=== PATIENT | male | born 1995 | race Caucasian/White ===

== ENCOUNTER → 2017-11-15 09:50 | Outpatient (REF) | payer SELFPAY | LOC: OM 09:50 | PROVIDERS: PCP Pediatrics; Visit Provider Nurse Practitioner Family | DX: Z02.83 Encounter for blood-alcohol and blood-drug test (principal) ==

== ENCOUNTER 2018-03-20 10:43 | Emergency (ER) | payer SELFPAY ==
[2018-03-20 10:52] VITALS: BP 139/79; PULSE 69; RESP 18; TEMP 38.9; O2SAT 98
--- NOTE | 2018-03-20 11:06 | ED.GENADUL_ITS ---
Discharge Plan Disposition Patient Disposition: HOME Condition: Stable Discharge Details Chief Complaint: DentalOral Clinical Impression: Dental infection Primary Care Provider: Jin Gonzalez ED Provider: Hillary Guerrier Home Meds and New Rx's Prescriptions: New penicillin V potassium 500 mg tablet 500 mg PO QID 7 Days Qty: 27 RF: 0 Discharge Instructions Instructions: Dental Abscess (ED) Additional Instructions: Please return immediately to the emergency department if you develop any new or worsening symptoms or if you become otherwise concerned. It is extremely important that you make an appointment to be seen by your dentist within the next 48 hours in follow-up for this visit. You may take 600 mg of ibuprofen every 6 hours as needed for pain. Medical Decision Making Emir gamez is a 22-year-old man with no reported major medical problems presenting to the emergency department with dental pain and swelling since yesterday. Exam patient is very well and nontoxic appearing. He is febrile. There is tender swelling over the left mandible without overlying skin changes. There is no intraoral abscess amenable to I&D. Exam/history not consistent with sepsis, meningitis, retropharyngeal abscess, peritonsillar abscess, Ryland angina, other abscess or deep space infection, impending airway compromise, osteomyelitis. Concern for dental infection. Plan for ibuprofen, penicillin. I had a lengthy discussion with Patient regarding return to emergency department precautions and importance of outpatient follow-up with dentist. Pt is amenable to the plan. Disposition decision was made weighing the risks and benefits of hospitalization versus outpatient treatment, the risk for further decompensation, and the patie nt's wishes. Medical Records Medical records reviewed: Yes I reviewed the patient's medical records. HPI General Mode of arrival: ambulatory . Date/Time Provider Initiated Documentation: 03/20/18 11:05 . Limitations to Documentation: no limitations . Information obtained by: patient, RN notes reviewed and old records reviewed . HPI Narrative: Emir Gamez is a 22-year-old man with history of asthma presenting to the emergency department with facial pain/swelling. Patient reports this ago he broke 3 of his left lower molars. He reports that yesterday he noticed pain and swelling in the area of the broken teeth, and also just below his left jaw. He presents the emergency department with a fever in triage, but does not think he had a fever yesterday. He denies any other pain, shortness of breath, cough, nausea/vomiting/diarrhea, numbness/tingling/weakness. Has been eating and drinking as usual. No recent illness. Slept on his back in his bed with one pillow last night as usual for him. Related Data Home Medications Medication Instructions Recorded Confirmed penicillin V potassium 500 mg PO QID 7 Days #27 tab 03/20/18 Previous Rx's Medication Instructions Recorded penicillin V potassium 500 mg PO QID 7 Days #27 tab 03/20/18 Allergies Allergy/AdvReac Type Severity Reaction Status Date / Time No Known Allergies Allergy Unverified 03/20/18 10:55 General Stated Complaint: DentalOral BLANCA: 4 Review of Systems Review of Systems Constitutional: denies fevers Eyes: denies eye pain ENT: denies sore throat, reports dental pain, left lower jaw pain Cardiovascular: denies chest pain Respiratory: denies SOB, cough GI: denies abdominal pain, vomiting, diarrhea : denies flank pain MSK: denies back pain, neck pain, arthralgias, myalgias Skin: denies rash Neuro: denies headaches, lightheadedness, weakness [facility] Medical History No active medical problems (Acute) No active medical problems (Acute) Social History Smoking/Tobacco Use Status: Current every day Exam Narrative Exam Narrative: Constitutional: well and [id number], pleasant, convers ing normally HENT: head atraumatic, normocephalic normal inspection, mucous membranes moist, normal posterior pharynx, uvula midline, no tongue elevation. poor dentition throughout with lower left 3 rear molars broken, mild edema over the body of the left mandible, TTP, no crepitus, no overlying skin changes. No trismus or tenderness of the TMJ. Eyes: conjunctiva normal, sclera normal, pupils 3mm b/l Neck: no stridor, normal painless ROM, trachea midline, no edema Chest: normal inspection Resp: normal work of breathing, LCTAB. Patient lies supine on bed with no difficulty breathing. Cardio: normal rate, normal rhythm, no murmur appreciated Skin: warm, dry, normal color, no rash Neuro: alert, not altered, grossly non-focal, normal tone Psych: normal mood, normal affect, normal behavior Course Vital Signs Temperature 38.9 C H 03/20/18 10:52 Pulse 69 03/20/18 10:52 Respiratory Rate 18 03/20/18 10:52 Blood Pressure 139/79 03/20/18 10:52 Pulse Oximetry 98 03/20/18 10:52 Temperature 38.9 C H 03/20/18 10:52 Temperature Source Skin 03/20/18 10:52 Pulse 69 03/20/18 10:52 Respiratory Rate 18 03/20/18 10:52 Respiratory Effort 03/20/18 10:56 Blood Pressure 139/79 03/20/18 10:52 Blood Pressure Position Sitting 03/20/18 10:52 Pulse Oximetry 98 03/20/18 10:52 Pain Level 8 03/20/18 10:56 Comment 03/20/18 10:52
[2018-03-20] MEDS: Penicillin V POTASSIUM 500 MG TAB PO (11:20)
[2018-03-20] MEDS: Ibuprofen 600 MG TAB PO (11:20)
[2018-03-20 11:22] VITALS: BP 139/79; PULSE 69; RESP 18; TEMP 38.9; O2SAT 98
== END 2018-03-20 11:27 | disposition home or self-care (01) ==
PROVIDERS: Emergency Provider Student in an Organized Health Care Education/Training Program; PCP Pediatrics
DX: K04.7 Periapical abscess without sinus (principal); F17.210 Nicotine dependence, cigarettes, uncomplicated
CPT/HCPCS: 99283

== ENCOUNTER 2018-05-11 00:27 | Emergency (ER) | payer SELFPAY ==
[2018-05-11 00:29] VITALS: BP 127/66; PULSE 88; RESP 18; TEMP 36.6; O2SAT 99
--- NOTE | 2018-05-11 00:32 | W.ED.GENAD ---
Discharge Plan Disposition Patient Disposition: HOME Condition: Stable Discharge Details Chief Complaint: Fever Clinical Impression: Flu-like symptoms, Acute streptococcal pharyngitis Primary Care Provider: None,None ED Provider: Chuy Kearney Home Meds and New Rx's Prescriptions: New amoxicillin 500 mg tablet 500 mg PO TID Qty: 30 RF: 0 oseltamivir [Tamiflu] 75 mg capsule 75 mg PO BID 5 Days Qty: 10 RF: 0 ondansetron 4 mg tablet,disintegrating 4 mg PO TID PRN (Reason: nausea and vomiting) 5 Days Qty: 30 RF: 0 Discharge Instructions Additional Instructions: your symptoms are most likely due to influenza. You also tested positive for strep throat Drink small frequent amounts of liquids to stay hydrated if symptoms continue next week see your primary care provider you can take 1000mg tylenol and 600mg ibuprofen every 6 hours as needed for muscle aches and fevers if you feel you are significantly more ill, have persistent vomit or difficulty breathing return to the emergency department Stand Alone Forms: Work Release Medical Decision Making 22 yo male who denies chronic medical problems, smokes, denies drug use, who comes in with chief complaint of fever, nausea, diarrhea, muscle aches, sore throat and dry cough all starting yesterday. He had a fever just prior to arrival per pt but took tylenol. He denies rashes, severe headache, dyspnea, neck stiffness, or recent travel. He has clear lungs, is speaking in full sentences wihout hypoxia and so doubt pna and do not feel xray or abx for pna indicated at this time. 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 his constellation of symptoms seems most consistent with influenza and someone at work had this recently per pt, given close contact and symptoms less than 48 hours will start tamiflu. I advsied f/u with pcp next week and if worsening return to the emergency department for reeval. No ivdu, murmurs or stigmata of endocarditis so do not feel w/u of this indicated. He had a strep test taken and this was positive, will start amoxicillin as well. no restricted neck movements, no pain over hyoid, no findings to suggest rpa, tours captain, epiglotitis. Differential Diagnosis influenza, viral illness, strep pharyngitis, pna HPI General Mode of arrival: ambulatory. Date/Time Provider Initiated Documentation: 05/11/18 00:32. Limitations to Documentation: no limitations. Information obtained by: patient. History of Present Illness 22 year old M presents to the emergency department with the chief complaint of fever, cough, muscle aches, described as moderate, with intensity rated at 5. Quality is described as aching, Patient reports no radiation. Patient started experiencing this day(s) (1) and it has been constant. No relieving factors improve symptom(s), No exacerbating factors reported . Patient notes other (nauea, diarrhea). Related Data Home Medications Medication Instructions Recorded Confirmed amoxicillin 500 mg PO TID #30 tab 05/11/18 ondansetron 4 mg PO TID PRN 5 Days #30 tab 05/11/18 oseltamivir [Tamiflu] 75 mg PO BID 5 Days #10 cap 05/11/18 Previous Rx's Medication Instructions Recorded amoxicillin 500 mg PO TID #30 tab 05/11/18 ondansetron 4 mg PO TID PRN 5 Days #30 tab 05/11/18 oseltamivir [Tamiflu] 75 mg PO BID 5 Days #10 cap 05/11/18 Allergies Allergy/AdvReac Type Severity Reaction Status Date / Time No Known Allergies Allergy Unverified 05/11/18 00:31 General Stated Complaint: Fever BLANCA: 4 Review of Systems Review of Systems All systems reviewed & are unremarkable except as noted in HPI and below Eyes Denies loss of vision ENT Denies change in voice Cardiovascular Denies chest pain and Denies dyspnea Respiratory Denies cough and Denies dyspnea Gastrointestinal Denies abdominal pain and Denies vomiting Genitourinary Denies dysuria Musculoskeletal Denies joint swelling Integumentary/Breasts Denies rash Neurologic Denies loss of vision [facility] Medical History No active medical problems (Acute) No active medical problems (Acute) Social History Smoking/Tobacco Use Status: Current every day Exam Const General: no acute distress Orientation: alert HENKS Head: normal to inspection Ears: external ears normal General nose exam: external nose normal Mouth: moist mucous membranes Eyes General: appearance normal, both eyes and all related structures Neck Neck: normal visual inspection Resp Effort & Inspection: normal respiratory effort and able to speak in complete sentences Cardio Rate: regular rate Skin General skin exam: no rashes or lesions noted Neuro General: alert and oriented x3 Extrem General: normal to inspection Psych Mental Status: mental status grossly normal Course Vital Signs Temperature 36.6 C 05/11/18 00:29 Pulse 88 05/11/18 00:29 Respiratory Rate 18 05/11/18 00:29 Blood Pressure 127/66 05/11/18 00:29 Pulse Oximetry 99 05/11/18 00:29 Temperature 36.6 C 05/11/18 00:29 Temperature Source Skin 05/11/18 00:29 Pulse 88 05/11/18 00:29 Respiratory Rate 18 05/11/18 00:29 Blood Pressure 127/66 05/11/18 00:29 Pulse Oximetry 99 05/11/18 00:29 Oxygen Delivery Method Room Air 05/11/18 00:29 Oxygen Flow Rate 0 05/11/18 00:29 Pain Level 10 05/11/18 00:29
[2018-05-11] MEDS: Oseltamivir 75 MG CAP PO (00:40)
[2018-05-11] MEDS: Ondansetron O.D.T. 4 MG TABEF PO (00:41)
[2018-05-11] MEDS: Amoxicillin 500 MG CAP PO (00:43)
--- NOTE | 2018-05-11 00:43 | ED.GENADUL_ITS ---
Discharge Plan Disposition Patient Disposition: HOME Condition: Stable Discharge Details Chief Complaint: Fever Clinical Impression: Flu-like symptoms, Acute streptococcal pharyngitis Primary Care Provider: None,None ED Provider: Chuy Kearney Home Meds and New Rx's Prescriptions: New amoxicillin 500 mg tablet 500 mg PO TID Qty: 30 RF: 0 oseltamivir [Tamiflu] 75 mg capsule 75 mg PO BID 5 Days Qty: 10 RF: 0 ondansetron 4 mg tablet,disintegrating 4 mg PO TID PRN (Reason: nausea and vomiting) 5 Days Qty: 30 RF: 0 Discharge Instructions Additional Instructions: your symptoms are most likely due to influenza. You also tested positive for strep throat Drink small frequent amounts of liquids to stay hydrated if symptoms continue next week see your primary care provider you can take 1000mg tylenol and 600mg ibuprofen every 6 hours as needed for muscle aches and fevers if you feel you are significantly more ill, have persistent vomit or difficulty breathing return to the emergency department Stand Alone Forms: Work Release Medical Decision Making 22 yo male who denies chronic medical problems, smokes, denies drug use, who comes in with chief complaint of fever, nausea, diarrhea, muscle aches, sore throat and dry cough all starting yesterday. He had a fever just prior to arrival per pt but took tylenol. He denies rashes, severe headache, dyspnea, neck stiffness, or recent travel. He has clear lungs, is speaking in full sentences wihout hypoxia and so doubt pna and do not feel xray or abx for pna indicated at this time. 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 his constellation of symptoms seems most consistent with influenza and someone at work had this recently per pt, given close contact and symptoms less than 48 hours will start tamiflu. I advsied f/u with pcp next week and if worsening return to the emergency department for reeval. No ivdu, murmurs or stigmata of endocarditis so do not feel w/u of this indicated. He had a strep test taken and this was positive, will start amoxicillin as well. no restricted neck movements, no pain over hyoid, no findings to suggest rpa, banquet captain, epiglotitis. Differential Diagnosis influenza, viral illness, strep pharyngitis, pna HPI General Mode of arrival: ambulatory . Date/Time Provider Initiated Documentation: 05/11/18 00:32 . Limitations to Documentation: no limitations . Information obtained by: patient . History of Present Illness 22 year old M presents to the emergency department with the chief complaint of fever, cough, muscle aches, described as moderate, with intensity rated at 5. Quality is described as aching, Patient reports no radiation. Patient started experiencing this day(s) (1) and it has been constant. No relieving factors improve symptom(s), No exacerbating factors reported . Patient notes other (nauea, diarrhea). Related Data Home Medications Medication Instructions Recorded Confirmed amoxicillin 500 mg PO TID #30 tab 05/11/18 ondansetron 4 mg PO TID PRN 5 Days #30 tab 05/11/18 oseltamivir [Tamiflu] 75 mg PO BID 5 Days #10 cap 05/11/18 Previous Rx's Medication Instructions Recorded amoxicillin 500 mg PO TID #30 tab 05/11/18 ondansetron 4 mg PO TID PRN 5 Days #30 tab 05/11/18 oseltamivir [Tamiflu] 75 mg PO BID 5 Days #10 cap 05/11/18 Allergies Allergy/AdvReac Type Severity Reaction Status Date / Time No Known Allergies Allergy Unverified 05/11/18 00:31 General Stated Complaint: Fever BLANCA: 4 Review of Systems Review of Systems All systems reviewed & are unremarkable except as noted in HPI and below Eyes Denies loss of vision ENT Denies change in voice Cardiovascular Denies chest pain and Denies dyspnea Respiratory Denies cough and Denies dyspnea Gastrointestinal Denies abdominal pain and Denies vomiting Genitourinary Denies dysuria Musculoskeletal Denies joint swelling Integumentary/Breasts Denies rash Neurologic Denies loss of vision [facility] Medical History No active medical problems (Acute) No active medical problems (Acute) Social History Smoking/Tobacco Use Status: Current every day Exam Const General: no acute distress Orientation: alert HENUT Head: normal to inspection Ears: external ears normal General nose exam: external nose normal Mouth: moist mucous membranes Eyes General: appearance normal, both eyes and all related structures Neck Neck: normal visual inspection Resp Effort & Inspection: normal respiratory effort and able to speak in complete sentences Cardio Rate: regular rate Skin General skin exam: no rashes or lesions noted Neuro General: alert and oriented x3 Extrem General: normal to inspection Psych Mental Status: mental status grossly normal Course Vital Signs Temperature 36.6 C 05/11/18 00:29 Pulse 88 05/11/18 00:29 Respiratory Rate 18 05/11/18 00:29 Blood Pressure 127/66 05/11/18 00:29 Pulse Oximetry 99 05/11/18 00:29 Temperature 36.6 C 05/11/18 00:29 Temperature Source Skin 05/11/18 00:29 Pulse 88 05/11/18 00:29 Respiratory Rate 18 05/11/18 00:29 Blood Pressure 127/66 05/11/18 00:29 Pulse Oximetry 99 05/11/18 00:29 Oxygen Delivery Method Room Air 05/11/18 00:29 Oxygen Flow Rate 0 05/11/18 00:29 Pain Level 10 05/11/18 00:29
== END 2018-05-11 00:48 | disposition home or self-care (01) ==
LOC: ER 00:43
PROVIDERS: Emergency Provider Emergency Medicine
DX: J11.1 Influenza due to unidentified influenza virus with other respiratory manifestations (principal); J02.0 Streptococcal pharyngitis
CPT/HCPCS: 87880; 99283

== ENCOUNTER 2019-02-12 00:38 | Emergency (ER) | payer SELFPAY ==
[2019-02-12 00:44] VITALS: BP 146/96; PULSE 65; RESP 16; TEMP 37.1; O2SAT 98
[2019-02-12] MEDS: Bupivacaine 0.5% Pres-Free 30 ML VIAL (00:48)
--- NOTE | 2019-02-12 00:50 | ED.GENADUL_ITS ---
Discharge Plan Disposition Patient Disposition: HOME Condition: Good Discharge Details Chief Complaint: DentalOral Clinical Impression: Pain, dental Primary Care Provider: None,None ED Provider: Miguel Alonzo Home Meds and New Rx's Prescriptions: New penicillin V potassium 500 mg tablet 500 mg PO QID 10 Days Qty: 40 RF: 0 No Action No Known Home Meds RF: 0 Discharge Instructions Instructions: Toothache (ED) Additional Instructions: You have a dental infection, likely from the root of your tooth. Please make sure you are taking the antibiotic as directed. Please also take 1000 mg of Tylenol every 6 hours and 800 mg of ibuprofen every 6 hours. Please follow-up closely with your dentist, please utilize the sheet of dental providers in the area that we have provided. If you notice any worsening of your symptoms, or any new symptoms such as vomiting, diarrhea, fever, chills, shortness of breath, chest pain, numbness, weakness, or fainting , please return immediately to the emergency department for reevaluation. Please follow up with your primary care provider as soon as possible for reassessment and reevaluation. As always, it was a pleasure participating in your medical care today. Medical Decision Making This is a pleasant 23-year-old male who presents with dental pain. Pain is been present for the last 1 to 2 days. He has a history of notable dental caries. Exam demonstrates a small left periapical abscess by his left lower canine. After discussing risks and benefits the patient elected for dental block, and I&D of abscess. Block was performed and the patient had complete resolution of his pain. 18-gauge needle was used to I&D the abscess and a notable amount of pus was removed. Patient feels much better. Patient has been given his first dose of penicillin will be given prescription for home use. Discussed the importance of NSAIDs. He was given a dental sheet for local providers. I have extensively reviewed the treatment plan and discharge instructions with the patient. I have addressed all patient concerns at this time. The patient was made aware of what symptoms to monitor for that would warrant a return to the emergency department. Discussed the plan with the patient, they demonstrate verbal understanding and agreement with our assessment and plan at this time. Time out was taken to identify the correct patient, procedure, and site. Risks and benefits were discussed with the patient and consent was obtained. Direct pressure was held over the area prior to the procedure to reduce painful injection. Lidocaine 1% and 0.5% bupivacaine 5ml was instilled into the posterior left jaw alveolar nerve area with a 27 gauge needle. Complete analgesia was obtained. The abscess was then incised with a 1 cm incision with an 18-gauge needle and a moderate amount of pus and blood returned. The patient tolerated the procedure. There were no complications. HPI General Date/Time Provider Initiated Documentation: 02/12/19 00:41 . HPI Narrative: This is a 23-year-old male with no significant past medical history who presents today for evaluation of left lower dental pain. He has a history of notable dental caries and poor teeth, however over the last 24 to 48 hours he has had swelling, pain, and his left lower teeth. He denies any fever or chills. He denies any difficulty swallowing or drinking. He has no other complaints at this time. He has not taken any Tylenol or Motrin. He has not yet seen a dentist. Related Data Home Medications Medication Instructions Recorded Confirmed Unknown [No Known Home Meds] 02/12/19 02/12/19 penicillin V potassium 500 mg PO QID 10 Days #40 tab 02/12/19 Previous Rx's Medication Instructions Recorded penicillin V potassium 500 mg PO QID 10 Days #40 tab 02/12/19 Allergies Allergy/AdvReac Type Severity Reaction Status Date / Time No Known Allergies Allergy Unverified 02/12/19 00:47 General Stated Complaint: DentalOral BLANCA: 4 Review of Systems All systems reviewed & are unremarkable except as noted in HPI and below [facility] Social History Smoking/Tobacco Use Status: Current every day Alcohol Intake: never Drug use: Daily Substance use type: marijuana Do you feel safe at home: Yes Do you feel safe in your relationship?: Yes Exam Narrative Exam Narrative: 1.Const: Well-nourished, Well-developed, appearing stated age 2.Eyes: PERRL, no conjunctival injection, and symmetrical lids. 3.ENT: Atraumatic external nose and ears. Moist MM. Neck: Symmetric, trachea midline, No thyromegaly. Notably poor dentition throughout, multiple caries and old fractured teeth. Left lower teeth in the area of the left lower canines demonstrates small periapical abscess. No active drainage. No evidence of Ludwigs angina. No other abnormalities. 4.CVS: +S1/S2, No murmurs or gallops. Peripheral pulses 2+ and equal in all extremities. Brisk capillary refill in all extremities. 5.RESP: Unlabored respiratory effort. Clear to auscultation bilaterally. No wheezes rales or rhonchi 6.GI: Soft, Nontender/Nondistended, No hepatosplenomegaly. No guarding or rebound. 7.MSK: Normocephalic/Atraumatic, Extremities w/o deformity or ttp No cyanosis or clubbing, Normal movement of all extremities 8.Skin: Warm, Dry. No rashes or lesions. 9.Neuro: founder II-XII grossly intact. Sensation grossly intact, no focal neurologic deficits. 10.Psych: (AAO) x3. Appropriate mood and affect Course Vital Signs Vital signs: Vital Signs Temperature 37.1 C 02/12/19 00:44 Pulse 65 02/12/19 00:44 Respiratory Rate 16 02/12/19 00:44 Blood Pressure 146/96 H 02/12/19 00:44 Pulse Oximetry 98 02/12/19 00:44 Temperature 37.1 C 02/12/19 00:44 Temperature Source Temporal Artery Scan 02/12/19 00:44 Pulse 65 02/12/19 00:44 Respiratory Rate 16 02/12/19 00:44 Respiratory Effort Non-Labored 02/12/19 00:47 Blood Pressure 146/96 H 02/12/19 00:44 Pulse Oximetry 98 02/12/19 00:44 Oxygen Delivery Method Room Air 02/12/19 00:44 Oxygen Flow Rate 0 02/12/19 00:44 Pain Level 7 02/12/19 00:44 Procedures Abscess I/D Site: Other (mouth) Side (if applicable): Left Local Anesthetic: Lidocaine 1% and Bupivicaine 0.5% Amount of anesthesia used (mL): 5 Technique: Needle Aspiration Amount of fluid expressed (mL): 3
[2019-02-12] MEDS: Penicillin V POTASSIUM 500 MG TAB PO (00:52)
[2019-02-12] MEDS: Ibuprofen 800 MG TAB (00:58)
[2019-02-12] MEDS: Penicillin V POTASSIUM 500 MG TAB (00:58)
[2019-02-12] MEDS: Acetaminophen 500 MG TAB (00:58)
== END 2019-02-12 00:55 | disposition home or self-care (01) ==
PROVIDERS: Emergency Provider Student in an Organized Health Care Education/Training Program
DX: K04.7 Periapical abscess without sinus (principal); K08.89 Other specified disorders of teeth and supporting structures
CPT/HCPCS: 10160; 99283

== ENCOUNTER 2021-01-14 08:20 | Emergency (ER) | payer SELFPAY ==
[2021-01-14 08:29] VITALS: BP 135/92; PULSE 66; TEMP 37.4; O2SAT 98
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
[2021-01-14] MEDS: Penicillin V POTASSIUM 500 MG TAB PO (09:38)
== END 2021-01-14 09:38 | disposition home or self-care (01) ==
PROVIDERS: Emergency Provider Physician Assistant
DX: K04.7 Periapical abscess without sinus (principal); K02.9 Dental caries, unspecified
CPT/HCPCS: 99283

== ENCOUNTER 2022-02-01 02:52 | Emergency (ER) | payer SELFPAY ==
[2022-02-01 02:57] VITALS: BP 129/68; PULSE 57; RESP 16; TEMP 36.8; O2SAT 99
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
[2022-02-01] MEDS: Penicillin V POTASSIUM 500 MG TAB, 4 TABS/BTL PO (03:11)
== END 2022-02-01 03:11 | disposition home or self-care (01) ==
PROVIDERS: Emergency Provider Emergency Medicine
DX: K04.7 Periapical abscess without sinus (principal); K02.9 Dental caries, unspecified
CPT/HCPCS: 99283

== ENCOUNTER 2022-11-11 07:41 | Emergency (ER) | payer SELFPAY | END 2022-11-11 08:10 | disposition home or self-care (01) | DX: H57.12 Ocular pain, left eye (principal) | CPT/HCPCS: 99283 ==

== ENCOUNTER 2023-06-01 10:00 | Emergency (ER) | payer SELFPAY ==
[2023-06-01 10:09] VITALS: BP 109/51; PULSE 65; RESP 16; TEMP 36.7; O2SAT 98
--- NOTE | 2023-06-01 10:33 | DI.RAD_ITS ---
Exam(s) XR FINGER RT INDEX EXAM: XR FINGER RT INDEX CLINICAL HISTORY: trauma, right PIP. TECHNIQUE: 2D digital imaging was performed of the right finger. Three views were obtained. PA/AP, oblique, and lateral views were obtained. COMPARISON: CR RIGHT HAND COMPLETE from 10/06/2011 FINDINGS: BONES: No acute fracture is present. No bony destructive lesion is seen. JOINTS: No dislocation present. SOFT TISSUE: Normal. IMPRESSION: No evidence of acute fracture, dislocation, or subluxation. DATA REPOSITORY: RADIATION DOSE DELIVERED:
[2023-06-01] MEDS: Ibuprofen 600 MG TAB PO (10:46)
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
[2023-06-01 11:02] VITALS: PULSE 65; RESP 16; TEMP 36.4; O2SAT 97
== END 2023-06-01 11:04 | disposition home or self-care (01) ==
PROVIDERS: Emergency Provider Nurse Practitioner Acute Care
DX: S60.021A Contusion of right index finger without damage to nail, initial encounter (principal); F17.210 Nicotine dependence, cigarettes, uncomplicated; W27.8XXA Contact with other nonpowered hand tool, initial encounter; Y93.89 Activity, other specified; Y92.89 Other specified places as the place of occurrence of the external cause; Y99.0 Civilian activity done for income or pay
CPT/HCPCS: 99283; 73140

== ENCOUNTER 2023-09-22 18:15 | Emergency (ER) | payer OTHER, SELFPAY ==
[2023-09-22 18:19] VITALS: BP 128/75; PULSE 68; RESP 18; TEMP 36.6; O2SAT 100
--- NOTE | 2023-09-22 18:30 | DI.RAD_ITS ---
Exam(s) XR FINGER RT MIDDLE EXAM: XR FINGER RT MIDDLE CLINICAL HISTORY: 3rd distal finger injury. TECHNIQUE: 2D digital imaging was performed. Three views. COMPARISON: CR XR FINGER RT INDEX from 06/01/2023 FINDINGS: BONES: No acute fracture is present. No bony destructive lesion is seen. JOINTS: No dislocation present. SOFT TISSUE: Normal. No foreign body. IMPRESSION: No acute abnormality. DATA REPOSITORY: RADIATION DOSE DELIVERED:
[2023-09-22 20:09] VITALS: BP 120/82; PULSE 80; RESP 16; TEMP 36.8; O2SAT 98
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
== END 2023-09-22 21:00 | disposition home or self-care (01) ==
PROVIDERS: Emergency Provider Physician Assistant
DX: S60.131A Contusion of right middle finger with damage to nail, initial encounter (principal); F17.210 Nicotine dependence, cigarettes, uncomplicated; F17.290 Nicotine dependence, other tobacco product, uncomplicated; W31.89XA Contact with other specified machinery, initial encounter; Y93.89 Activity, other specified; Y92.89 Other specified places as the place of occurrence of the external cause; Y99.0 Civilian activity done for income or pay
CPT/HCPCS: 11740; 99283; 73140

== ENCOUNTER 2024-11-16 20:26 | Emergency (ER) | payer SELFPAY ==
[2024-11-16 20:29] VITALS: BP 144/88; PULSE 57; RESP 14; TEMP 37; O2SAT 97
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
[2024-11-16] MEDS: Amox. 875/Clav. 125, 2 TABS/BTL 1 TAB PO (21:03)
[2024-11-16] MEDS: Acetaminophen 500 MG TAB 1000 MG PO (21:04)
== END 2024-11-16 21:14 | disposition home or self-care (01) ==
LOC: ER 21:00
PROVIDERS: Emergency Provider Emergency Medicine
DX: R68.84 Jaw pain (principal); K04.7 Periapical abscess without sinus
CPT/HCPCS: 99283 ×2

== ENCOUNTER 2024-11-21 16:28 | Emergency (ER) | payer SELFPAY ==
[2024-11-21 16:29] VITALS: BP 155/92; PULSE 48; RESP 18; TEMP 36.2; O2SAT 97
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
[2024-11-21] MEDS: Benzocaine 20% Gel 30 GM JAR MM (17:22)
== END 2024-11-21 18:12 | disposition home or self-care (01) ==
PROVIDERS: Emergency Provider Registered Nurse Emergency
DX: R68.84 Jaw pain (principal); K04.7 Periapical abscess without sinus; K02.9 Dental caries, unspecified
CPT/HCPCS: 99283 ×2